=== PATIENT | male | born 1945 | race Caucasian/White ===

== ENCOUNTER 2017-12-13 09:52 | Inpatient (IN) | payer OTHER ==
[~2017-12-13] VITALS: Ht 167.6 cm; Wt 92.1 kg
[~2017-12-13 09:52] MED LIST: ASPIR 8181 M1 PO; BAYER CHEWABLE81 MG PO; COZAAR 50 MG TA50 M2 PO; CRESTOR10 MG PO; FLOMAX0.4 MG PO; IMDUR 60 MG TAB60 M1 PO; LISINOPRIL10 MG PO; LOPRESSOR50 PO; NITROGLYCERIN0.4 MG SUBLING; PLAVIX 75 MG TA75 M1 PO; PRINIVIL20 MG PO; TOPROL XL25 MG PO; ZOLOFT100 MG PO
[2017-12-13 10:00] VITALS: BP 145/75
[2017-12-13] MEDS ORDERED: METFORMIN HCL500 MG PO (10:18)
[2017-12-13] MEDS ORDERED: LIPITOR 20 MG T20 M1 PO (10:18)
[2017-12-13 10:49] LABS: ABSOLUTE EOSINOPHILS 0.1 thou/uL (0.0-0.7); ABSOLUTE LYMPHOCYTES 1.1 thou/uL (0.8-5.3); ABSOLUTE MONOCYTES 0.5 thou/uL (0.0-1.2); ABSOLUTE NEUTROPHILS 4.9 thou/uL (1.6-8.1); BASOPHILS 0.4 %; HEMATOCRIT 46.7 % (42.0-52.0); HEMOGLOBIN 15.8 gm/dL (14.0-18.0); LYMPHOCYTES 16.6 %; MCH 29.7 pg (26.0-34.0); MCHC 33.7 g/dL (28.0-37.0); MCV 87.9 fL (80.0-100.0); MONOCYTES 7.8 %; MPV 8.6 fl. (7.2-11.1); NUCLEATED RBCS 0 /100WBC; PLATELET COUNT* 169 thou/uL (150-400); POLYS 74.2 %; RBC 5.31 mil/uL (4.50-6.00); RDW-CV 14.4 % (10.5-14.5); WBC 6.6 thou/uL (4.0-11.0)
[2017-12-13 10:57] LABS: ANION GAP 8 mmol/L (7-16); BUN 11 mg/dL (7-18); CALCIUM 8.5 mg/dL (8.5-10.1); CHLORIDE 102 mmol/L (98-107); CO2 30 mmol/L (21-32); CREATININE 0.8 mg/dL (0.6-1.3); GLUCOSE 154 mg/dL (70-99); POTASSIUM 3.6 mmol/L (3.5-5.1); SODIUM 140 mmol/L (136-145)
[2017-12-13 11:01] LABS: APTT 28.8 Seconds (25.0-31.3)
[2017-12-13 11:05] LABS: ALBUMIN 3.7 g/dL (3.4-5.0); ALKALINE PHOSPHATASE 120 U/L (46-116); LIPASE 89 U/L (73-393); NT-PRO BRAIN NAT PEPTIDE 135 pg/mL (<300); SGOT 26 U/L (15-37); SGPT 27 U/L (30-65); TOTAL BILIRUBIN 0.7 mg/dL (<0.1-1.0); TOTAL PROTEIN 7.4 g/dL (6.4-8.2); TROPONIN-I LEVEL <0.06 ng/mL (<0.06)
--- NOTE | 2017-12-13 12:51 | NUR ---
PT GIVEN LUNCH TRAY.
[2017-12-13 13:55] VITALS: BP 149/78
[2017-12-13 14:00] VITALS: BP 144/78
--- NOTE | 2017-12-13 14:50 | NUR ---
ASSUMED CARE OF PATIENT AT 1400 AFTER TRANSFER TO ROOM 210 FROM EMERGENCY DEPARTMENT. PATIENT AWAKE, ALERT, AND ORIENTED APPROPRIATELY. ADMISSION ASSESSMENT AND DOCUMENTATION COMPLETED AND CHARTED. VITAL SIGNS STABLE. OXYGEN SATURATION WITHIN NORMAL LIMITS ON ROOM AIR. FALL CONTRACT AND MEDICARE PAPERWORK SIGNED AND ON CHART. PEDIATRIC CLINICAL NURSE SPECIALIST IN PLACE. FAMILY AT BEDSIDE. PATIENT DENIES NEEDS AT THIS TIME. WILL BE UP AD DEB. DISPLAYING NO SYSMPTOMS OF BRADYCARDIA. CALL LIGHT WITHIN REACH. NURSING WILL CONTINUE TO MONITOR.
[2017-12-13 15:27] VITALS: BP 136/70
--- NOTE | 2017-12-13 17:54 | NUR ---
PATIENT REMAINS ALERT AND ORIENTED APPROPRIATELY. DENIES NEEDS AT THIS TIME. CALL LIGHT WITHIN REACH. NURSING WILL CONTINUE TO MONITOR.
[2017-12-13 19:45] VITALS: BP 169/71
[2017-12-14] VITALS (18 sets, daily range): BP systolic 105–156; BP diastolic 48–81
--- NOTE | 2017-12-14 04:47 | NUR ---
END SHIFT: PT RESTED WELL. HR WOULD DROP INTO THE 20'S BREIFLY WHILE SLEEPING. SB WITH MULTIPLE PVC'S AND BIGEMINY NOTED. C/O DULL ACHE IN BILAT SHOULDERS RELIEVED BY IV PAIN MEDICATION. HAS REMAINED NPO SINCE [place] AWAITING CARDS CONS. SAFETY PRECAUTIONS IN PLACE. CALL LIGHT IN REACH. WILL CONT TO MONITOR.
[2017-12-14 11:02] LABS: CHOLESTEROL 118 mg/dL (<200); HDL CHOLESTEROL 53 mg/dL (>40); LDL CHOLESTEROL 38 mg/dL (<100); TC:HDL 2.2 Ratio (Not establshd); TRIGLYCERIDE 138 mg/dL (<150); VLDL 28 mg/dL (<40)
[2017-12-14 11:03] LABS: SERUM ASSESSMENT Clear
--- NOTE | 2017-12-14 14:26 | NUR ---
CM ASSESSMENT: Pt is A&O. Resides at home with his . Pt has supportive family that is invovled in POC. No DME. No hx of HH or SNF. Goal is to return home once medically stable. Cards following.
--- NOTE | 2017-12-14 15:43 | NUR ---
RECEIVED REPORT AND ASSUMED CARE AT 0730. VSS, CARDIAC MONITORING IN PLACE. PT REPORTS PAIN BILATERAL SHOULDERS, 09/09, DOES NOT WANT ANY PAIN MEDICATION. PT A&OX4, UP AD DEB IN ROOM. ON RA. CARDIOLOGY CONSULTED, CATH SCHEDULED FOR TODAY 12/14/17. PLAN OF CARE DISCUSSED WITH PT, VERBALIZED UNDERSTANDING. ASSESSMENT COMPLETED CHARTED. BED IN LOWEST POSITION, CALL LIGHT WITHIN REACH. WILL CONTINUE TO MONITOR FOR REMAINDER OF THE SHIFT.
--- NOTE | 2017-12-14 17:48 | EKG ---
[place] [address] ELECTROCARDIOGRAM REPORT Name: RUBIN WEEKS Room: [address] ADM IN M.R.#: [id number] Admission: 12/13/17 Attend Phys: Zaira Shoemaker MD Discharge: Date of : 45 Report #: [id number] THIS REPORT FOR: //name// [facility] ED Test Date: 2017-12-13 Test Time: 09:59:44 Pat Name: RUBIN WEEKS Department: Room: [facility] Gender: Medical Referral Coordinator: Rishi CRAMER : 1945 Requested By: Lucina Carranza Order Number: [id number] MD: Isaak Castellano Measurements Intervals Isabel Rate: 64 P: 37 WV: 196 QRS: -24 QRSD: 97 T: 36 QT: 437 QTc: 451 Interpretive Statements Sinus rhythm Multiform ventricular premature complexes Inferior infarct, old Compared to ECG 02/22/2016 12:02:15 No significant changes Electronically Signed On 12-14-2017 17:48:18 CDT by Isaak Castellano [email or web address] <ELECTRONICALLY SIGNED> By: Isaak Castellano MD, [facility] 12/14/17 1748 [id number] [id number] Isaak Castellano MD, [facility] /EPI
--- NOTE | 2017-12-14 17:56 | NUR ---
PT RETURNED TO UNIT FROM DISTRIBUTOR ADVERTISING MATERIAL AT 1614. PT A&O X4, PT ON RA. PT ON BEDREST FOR 5HR, WILL BE ABLE TO GET UP AT 2114. VSS AT RETURN TO UNIT. VS TAKEN PER PROTOCOL. PT DENIES ANY COMPLAINTS OF PAIN. BED IN LOWEST POSITION. CALL LIGHT WITHIN REACH. BED ALARM ON. CARDIAC MONITORING IN PLACE. PT PROGRESSING TOWARDS GOALS. WILL CONTINUE TO MONITOR FOR REMAINDER OF THE SHIFT.
--- NOTE | 2017-12-14 19:20 | NUR ---
PLEASE NOTE POST CATH VITALS AND ASSESSMENT STARTED AT 1715.
[2017-12-15 03:43] VITALS: BP 97/46
--- NOTE | 2017-12-15 05:00 | NUR ---
Pt on bedrest following cardiac cath until 2214. Rt groin stable with no hematoma; PPP. VSS, though BP lower since being off bedrest (105/48 at 2300, and 97/46 at 0300). Asymptomatic. States he is hopeful of being discharged today. Will continue to monitor.
[2017-12-15 05:29] LABS: HEMATOCRIT 42.1 % (42.0-52.0); HEMOGLOBIN 14.2 gm/dL (14.0-18.0); MCH 29.5 pg (26.0-34.0); MCHC 33.7 g/dL (28.0-37.0); MCV 87.5 fL (80.0-100.0); RBC 4.81 mil/uL (4.50-6.00); RDW-CV 14.3 % (10.5-14.5); WBC 6.8 thou/uL (4.0-11.0)
[2017-12-15 06:18] LABS: ALBUMIN 3.1 g/dL (3.4-5.0); ALKALINE PHOSPHATASE 102 U/L (46-116); ANION GAP 10 mmol/L (7-16); BUN 11 mg/dL (7-18); CALCIUM 8.4 mg/dL (8.5-10.1); CHLORIDE 106 mmol/L (98-107); CO2 26 mmol/L (21-32); CREATININE 0.7 mg/dL (0.6-1.3); GLUCOSE 119 mg/dL (70-99); POTASSIUM 3.6 mmol/L (3.5-5.1); SGOT 22 U/L (15-37); SGPT 20 U/L (30-65); SODIUM 142 mmol/L (136-145); TOTAL BILIRUBIN 0.8 mg/dL (<0.1-1.0); TOTAL PROTEIN 5.9 g/dL (6.4-8.2); TROPONIN-I LEVEL <0.06 ng/mL (<0.06)
[2017-12-15 07:30] VITALS: BP 134/73
[2017-12-15 09:09] VITALS: BP 97/46
[2017-12-15] MEDS ORDERED: CLOPIDOGREL75 MG PO (09:12)
[2017-12-15 11:00] VITALS: BP 97/46
--- NOTE | 2017-12-15 11:56 | NUR ---
RECEIVED REPORT AND ASSUMED CARE AT 0730. VSS. CARDIAC MONITORING IN PLACE. ASSESSMENT COMPLETED CHARTED. PT DENIES ANY COMPLAINTS OF PAIN. DISCUSSED PLAN OF CARE WITH PT. PT WILL TALK WITH CARDIAC REHAB NURSE. PT VERBALIZED UNDERSTANDING. PT UP AD DEB IN ROOM, ON RA. BED IN LOWEST POSITION AND CALL LIGHT WITHIN REACH. PLANS FOR DISCHARGE TODAY. WILL CONTINUE TO MONITOR.
[2017-12-15 12:26] VITALS: BP 97/46
--- NOTE | 2017-12-15 13:30 | NUR ---
DISCHARGE ORDERS GIVEN. PAPERWORK COMPLETED BY NURSING. IV AND CARDIAC MONITORING DISCONTINUED. PT DENIES ANY CONMPLAINS OF PAIN. PT RECEIVED INFORMATION FROM CARDIAC REHAD RN. DISCUSSED PAPERWORK WITH PT, VERBALIZED UNDERSTANDING. ALL QUESTINOS AND CONCERNS ADDRESSED AT THIS TIME. ALL BELONGINGS GATHERED AND GIVEN TO THE PT. PT WAS TAKEN BY STAFF IN W/C, BEING TRANSPORTED HOME BY DAUGHTER WITH SPOUSE IN PERSONAL VEHICLE
--- NOTE | 2017-12-15 14:04 | EKG ---
[place] [address] ELECTROCARDIOGRAM REPORT Name: RUBIN WEEKS Room: [address] IN .R.#: [id number] Admission: 12/13/17 Attend Phys: Zaira Shoemaker MD Discharge: 12/15/17 Date of : 45 Report #: [id number] THIS REPORT FOR: //name// [facility] Test Date: 2017-12-15 Test Time: 08:24:58 Pat Name: RUBIN WEEKS Department: Room: [address] Gender: M Rn Quality: : 1945 Requested By: Clem Winters Order Number: [id number] MD: Isaak Castellano Measurements Intervals [place] Rate: 64 P: 44 CT: 201 QRS: -22 QRSD: 92 T: 71 QT: 630 QTc: 650 Interpretive Statements Sinus rhythm Ventricular premature complex Inferior infarct, old Prolonged QT interval Baseline wander in lead(s) V5 Compared to ECG 12/13/2017 09:59:44 Prolonged QT interval now present Myocardial infarct finding still present for her Electronically Signed On 12-15-2017 14:04:37 CDT by Isaak Castellano [email or web address] <ELECTRONICALLY SIGNED> By: Isaak Castellano MD, FACC 12/15/17 1404 0824 Isaak Castellano MD, [facility] /EPI
--- NOTE | 2017-12-16 16:33 | CON ---
[address] [address] CONSULTATION Name: RUBIN WEEKS Room: [address] IN .R.#: [id number] Admission: 12/13/17 Attend Phys: Zaira Shoemaker MD Discharge: 12/15/17 Date of : 45 Report #: [id number] THIS REPORT FOR: //name// CC: Estee Castellano DATE OF SERVICE: 12/14/2017 Thank you for allowing me to see this patient in cardiovascular assessment. As you know, he is a very pleasant 72-year-old male with known coronary artery disease. He is followed by Dr. Castellano for this problem. He had initial myocardial infarction in 2001 and has had a placement of 5 stents over several years, most recently 4 years ago in [place]. In the last 7-10 days, he has noted recrudescence of pain in his back and shoulders with radiation down the back, which is similar to his prior ischemic syndrome, though not as severe as the pain associated with his myocardial infarction. It occurs essentially daily and he has not sought any specific medications for relief. He has not had this prior to approximately 10 days ago. Risk factors for coronary artery disease include hypercholesterolemia, diabetes, hypertension and a family history of coronary artery disease in his father. He denies symptoms of heart failure or significant dysrhythmia. PAST MEDICAL HISTORY: Remarkable for cholecystectomy, prior myocardial infarction and prior stenting. FAMILY HISTORY: Remarkable for myocardial infarction in his father. SOCIAL HISTORY: The patient is and retired. MEDICATIONS: Aspirin 81 mg daily, atorvastatin 20 mg daily, Imdur 60 mg daily, losartan 50 mg daily, metformin 100 mg daily, metoprolol 50 mg b.i.d., p.r.n. nitroglycerin, Zoloft 100 mg daily and tamsulosin or Flomax 0.4 mg daily. REVIEW OF SYSTEMS: CENTRAL NERVOUS SYSTEM: He denies convulsion or paralysis. GENERAL: There has been no weight change or fever. RESPIRATORY: He notes occasional cough. CARDIOVASCULAR: He describes the aforementioned back and shoulder discomfort, typical of his prior angina. ENDOCRINE: He notes type 2 sty-qepqigc-unmmucqpa diabetes. GASTROINTESTINAL: He denies nausea, vomiting or blood in the stools. GENITOURINARY: [place] [address] CONSULTATION Name: RUBIN WEEKS Room: [address]#: [id number] Admission: 12/13/17 Attend Phys: Zaira Shoemaker MD Discharge: 12/15/17 Date of : 45 Report #: [id number] HEMATOLOGIC AND LYMPHATIC: He has a history of prostate cancer in 2013. ALLERGIC AND IMMUNOLOGIC: He notes medication allergies to NSAIDs. PSYCHIATRIC: He denies depression or chronic anxiety. MUSCULOSKELETAL: He notes chronic arthritic complaints. SKIN: He denies rashes or hives. EYES: Wears glasses. ENT: He has dentures. PHYSICAL EXAMINATION: GENERAL: Reveals a moderately overweight elderly male, in no acute distress. VITAL SIGNS: His blood pressure is 122/70, pulse rate is 55, respirations are 18 per minute. HEENT: Oral mucosa is moist. There is no thyromegaly, no scleral icterus. NECK: Jugular venous pressure is normal. Carotids are 1-2+. CHEST: Clear. CARDIAC: Reveals normal first and second heart sounds with a question of S4 gallop. ABDOMEN: Moderately obese. EXTREMITIES: Without edema with intact femoral, pedal and radial pulses. LABORATORY DATA: Electrocardiogram demonstrates a sinus rhythm with moderately frequent PVCs, minor interventricular conduction delay and nonspecific ST-T alterations. Lab is remarkable for white blood cell count 6600, hemoglobin 15.8, 169,000 platelets6. Sodium 140, potassium 3.6, BUN 11, creatinine 0.8. Troponin is less than 0.06. IMPRESSION: 1. Recurrent pain in the shoulder and down the back, typical of his prior ischemic syndrome, but not as severe as that associated with acute myocardial infarction; this most likely represents angina following an unstable course. 2. Coronary artery disease, status post prior myocardial infarction. 3. Status post deployment of multiple stents on different occasions, most recently in 2013 in [place]. 4. Prior cigarette smoking. 5. Hypercholesterolemia. 6. Non-insulin dependent diabetes. 7. Hypertension. 8. Positive family history of premature coronary artery disease. RECOMMENDATIONS: Given the aforementioned clinical scenario with recrudescence of pain similar to his prior ischemic syndrome, I would recommend proceeding with cardiac catheterization to define current coronary anatomy and prospects for subsequent therapy. This has been discussed with the patient and family. [address] [address] CONSULTATION Name: RUBIN WEEKS Room: [address] IN [facility].#: [id number] Admission: 12/13/17 Attend Phys: Zaira Shoemaker MD Discharge: 12/15/17 Date of : 45 Report #: [id number] Thank you for allowing me to see this patient in cardiovascular assessment. The patient is to return to Dr. Shoemaker. <ELECTRONICALLY SIGNED> By: Clem Winters MD, FACC 12/16/17 1633 1000 [id number] Winters MD, FACC /nt
--- NOTE | 2017-12-19 14:02 | CARD ---
[address] [address] CARDIAC CATH REPORT Name: RUBIN WEEKS Room: [address] IN [facility]#: [id number] Admission: 12/13/17 Attend Phys: Zaira Shoemaker MD Discharge: 12/15/17 Date of : 45 Report #: [id number] THIS REPORT FOR: //name// APPROVED REPORT Study performed: 12/14/2017 14:45:15 Patient Details Patient Status: In-Patient Room #: The patient is a 72 year-old male Event Personnel Clem Winters Motor Electrician, Mary Jane Whitman RN RN, Britany Beth Childers, James Monitor Procedures Performed Left heart catheterization left ventriculography selective coronary artery artery and percutaneous Coronary Angioplasty at the Sites of Tandem 90% First Diagonal Stenoses; FFR was also performed on the LAD Indication Unstable angina Risk Factors Hypercholesterolemia, Hypertension Previous Procedures/Diagnoses Previous PCI Admission/Lab Medications/Medications given during procedure Aspirin, Platelet Aff. Inhib., Heparin Unfract. Procedure Narrative A [place] 6 FR sheath was inserted into the . Coronary angiography was performed using coronary diagnostic catheters. The right coronary system was accessed and visualized with a Diagnostic - JR4 catheter. The left coronary system was accessed and visualized with a Diagnostic - JL4 catheter. The left ventricle was accessed and visualized with a Diagnostic - PIGTAIL catheter. The patient tolerated the procedure well and there were no complications associated with the procedure. Intraoperative Conscious Sedation Sedation start time: 1508 Case end Time: [address] [address] CARDIAC CATH REPORT Name: DESIRUBIN S Room: [address]#: [id number] Admission: 12/13/17 Attend Phys: Zaira Shoemaker MD Discharge: 12/15/17 Date of : 45 Report #: [id number] Fentanyl 100 mcg Versed 2 mg Fluoro Time: 21.3 minutes Dose: DAP 376144 cGycm2 3120 mGy Contrast Type and Amount: Visipaque 450 ml Coronary Angiography The patient's coronary anatomy is right dominant. Diagnostic Cath Left Main 10% distal narrowing LAD 40% mid LAD narrowing with tandem 90% ostial and mid second diagonal stenosis Circumflex 30% proximal and mid vessel narrowing, this being a nondominant vessel Right Coronary Dominant vessel with 30% proximal narrowing Left Ventriculography The left ventricle is normal in size with normal contractility. The left ventricular ejection fraction is estimated to be 55-60%. Left ventricular wall motion abnormalities are not present. There is no mitral insufficiency. IVUS Anticoagulation was achieved with Heparin. IVUS Findings FFR STARTED AT .97 AND ENDED AT .87 after adenosine provocation Hemodynamics The aortic pressure is 160/75 mmHg with a mean of 99 mmHg. The left ventricular pressure is 151/-2 mmHg with a mean of mmHg. The left ventricular end diastolic pressure is 6 mmHg. There was no gradient across the aortic valve upon pullback. PCI Technique Lesion Anticoagulation was achieved with Heparin. Patient was preloaded with Heparin IV 7000 units. Percutaneous coronary intervention was performed on the second diagnonal branch segment. The lesion stenosis prior to intervention was 90% with MINOR flow. A 6Fr XB 3.5 Guide Catheter was used to engage the ostium. A IG: ProwaterFlex 180CM Interventional Guidewire was used to cross the lesion[place] [address] CARDIAC CATH REPORT Name: RUBIN WEEKS Room: [address]#: [id number] Admission: 12/13/17 Attend Phys: Zaira Shoemaker MD Discharge: 12/15/17 Date of : 45 Report #: [id number] A Balloon catheter Mini Trek RX 2.0 X 8 was inserted and inflated up to 10.00atm for 16seconds. Additional Inflation: 8.00atm for 15seconds. Additional Inflation: 10.00atm for 14seconds. Final angiography reveals 0 % stenosis with MINOR 3 flow. BALLOON DILATION A Balloon catheter FFR STARTED AT .97 AND ENDED AT .87 after adenosine provocation was inserted and inflated up to mercy for seconds. PCI Technique Lesion 2 Percutaneous coronary intervention was performed on the ostial second diagonal branch. The lesion stenosis prior to intervention was 80% with MINOR 3 flow. Balloon Dilation A Balloon catheter NC Trek RX 2.25 X 8 was inserted and inflated up to 12atm for 14seconds. Additional Inflation: 8atm for 13seconds. Final angiography reveals 20 % stenosis with MINOR 3 flow. Balloon Dilation A Balloon catheter NC Trek RX 2.25 X 8 was inserted and inflated up to 8atm for 10seconds. Additional Inflation: 10atm for 9seconds. Additional Inflation: 12atm for 9seconds. Conclusion #1 significant coronary artery disease characterized by the following: A 10 percent distal left main coronary artery narrowing, B 40% mid LAD in-stent restenosis with tandem 80 and 90% stenosis of the second diagonal branch of the LAD, C nondominant circumflex with 30% proximal and mid vessel narrowing, D dominant right coronary artery 30% proximal narrowing #2 normal left ventricular systolic function, estimated ejection fraction being 55% #3 mild [place] [address] CARDIAC CATH REPORT Name: RUBIN WEEKS Room: [address]#: [id number] Admission: 12/13/17 Attend Phys: Zaira Shoemaker MD Discharge: 12/15/17 Date of : 45 Report #: [id number] #4 fractional flow reserve performed on the mid LAD with a minimum value of .87 after pharmacologic provocation, suggesting lack of hemodynamic significance #5 successful percutaneous transluminal coronary angioplasty at the sites of 80 and 90% ostial and mid second diagonal stenosis with 20 and 0% residual narrowing following final dilatation with MINOR-3 flow to the distal vessel. Recommendations Daily ASA with Plavix for at least one year Medications Administered Aspirin (any) Clopidogrel <ELECTRONICALLY SIGNED> By: Clem Winters MD, [facility] 12/19/17 1401 140 1401Clem Winters MD, FAC /INF
== END 2017-12-15 13:54 | disposition home or self-care (01) | DRG 251 ==
LOC: M.ERS 09:52 → M.TBA-ER 11:41 → M.2W 11:41
PROVIDERS: Internal Medicine; Personal Emergency Response Attendant; ADMIT Internal Medicine
DX: I25.110 Atherosclerotic heart disease of native coronary artery with unstable angina pectoris (principal); I10 Essential (primary) hypertension; E78.00 Pure hypercholesterolemia, unspecified; N40.0 Benign prostatic hyperplasia without lower urinary tract symptoms; E11.9 Type 2 diabetes mellitus without complications; I25.2 Old myocardial infarction; Z95.5 Presence of coronary angioplasty implant and graft; Z85.46 Personal history of malignant neoplasm of prostate; Z92.3 Personal history of irradiation; Z79.84 Long term (current) use of oral hypoglycemic drugs; Z79.82 Long term (current) use of aspirin; Z79.899 Other long term (current) drug therapy; Z88.8 Allergy status to other drugs, medicaments and biological substances; Z82.49 Family history of ischemic heart disease and other diseases of the circulatory system

== ENCOUNTER → 2018-09-15 | Outpatient (CLI) | payer MEDICARE, OTHER ==
[~2018-09-15] MED LIST changes: +CLOPIDOGREL75 MG PO; +LIPITOR 20 MG T20 M1 PO; +METFORMIN HCL500 MG PO
--- NOTE | 2018-09-15 17:38 | 2DMMODE ---
[place] [address] 2 D/M-MODE ECHOCARDIOGRAM Name: RUBIN WEEKS Room: [facility]#: [id number] Admission: 09/15/18 Attend Phys: Judie Alvarez Discharge: Date of : 45 Date of Service: 09/15/18 1738 Report #: [id number] THIS REPORT FOR: //name// APPROVED REPORT Study performed: 09/15/2018 08:18:27 EXAM: Comprehensive 2D, Doppler, and color-flow Echocardiogram BSA: 2.04 HR: 72 bpm BP: 128/78 mmHg Other Information Study Quality: Fair Indications CAD Hypertension/HDD 2D Dimensions IVSd: 13.62 (7-11mm) LVOT Diam: 20.97 (18-24mm) LVDd: 50.40 mm PWd: 11.43 (7-11mm) Ascending Ao: 31.28 (22-36mm) LVDs: 29.02 (25-40mm) Aortic Root: 26.92 mm Volumes Left Atrial Volume (Systole) LA ESV Index: 11.90 mL/m2 Aortic Valve AoV Peak Kedar.: 1.19 m/s AO Peak Gr.: 5.62 mmHg LVOT Max P.11 mmHg AO Mean Gr.: 3.14 mmHg LVOT Mean P.42 mmHg LVOT Max V: 0.88 m/s AO V2 VTI: 21.24 cm LVOT Mean V: 0.54 m/s AKMLA (VTI): 2.56 cm2 LVOT V1 VTI: 15.72 cm Mitral Valve E/A Ratio: 0.53 MV Decel. Time: 478.62 ms MV E Max Kedar.: 0.35 m/s MV PHT: 138.80 ms MVA (PHT): 1.59 cm2 [place] [address] 2 D/M-MODE ECHOCARDIOGRAM Name: RUBIN WEEKS Room: [facility]#: [id number] Admission: 09/15/18 Attend Phys: Judie Alvarez Discharge: Date of : 45 Date of Service: 09/15/18 1738 Report #: [id number] TDI E/Lateral E': 2.92 E/Medial E': 5.83 Medial E' Kedar.: 0.06 m/s Lateral E' Kedar.: 0.12 m/s Pulmonary Valve PV Peak Kedar.: 1.26 m/s PV Peak Gr.: 6.34 mmHg Left Ventricle The left ventricle is normal size. There is normal LV segmental wall motion. Mild concentric left ventricular hypertrophy. Left ventricular systolic function is normal. LVEF is 55-60%. Grade I - abnormal relaxation pattern. Right Ventricle The right ventricle is normal size. The right ventricular systolic function is normal. Atria The left atrium size is normal. The right atrium size is normal. Aortic Valve The aortic valve is normal in structure. No aortic regurgitation is present. There is no aortic valvular stenosis. Mitral Valve There is mitral annular calcification. There is no mitral valve regurgitation noted. Mild mitral stenosis. Tricuspid Valve The tricuspid valve is normal in structure. There is no tricuspid valve regurgitation noted. Pulmonic Valve The pulmonary valve is normal in structure. There is no pulmonic valvular regurgitation. Great Vessels The aortic root is normal in size. IVC is normal in size and collapses >50% with inspiration. Pericardium There is no [place] [address] 2 D/M-MODE ECHOCARDIOGRAM Name: RUBIN WEEKS Room: [facility]#: [id number] Admission: 09/15/18 Attend Phys: Judie Alvarez Discharge: Date of : 45 Date of Service: 09/15/18 1738 Report #: [id number] <Conclusion> The left ventricle is normal size. Mild concentric left ventricular hypertrophy. Left ventricular systolic function is normal. LVEF is 55-60%. Grade I - abnormal relaxation pattern. There is mitral annular calcification. Mild mitral stenosis. IVC is normal in size and collapses >50% with inspiration. <ELECTRONICALLY SIGNED> By: Isaak Castellano MD, FACC 09/15/18 1738 1738 1738 Isaak Castellano MD, FAC /INF
== END ==
LOC: M.CRD 08:00
DX: I51.7 Cardiomegaly (principal); I25.10 Atherosclerotic heart disease of native coronary artery without angina pectoris; I10 Essential (primary) hypertension

== ENCOUNTER → 2018-10-26 | Outpatient (CLI) | payer MEDICARE, OTHER | LOC: M.RAD 12:35 | DX: I51.7 Cardiomegaly (principal); J92.9 Pleural plaque without asbestos; R91.8 Other nonspecific abnormal finding of lung field; M47.814 Spondylosis without myelopathy or radiculopathy, thoracic region ==

== ENCOUNTER → 2021-02-06 | Outpatient (CLI) | payer MEDICARE, OTHER ==
--- NOTE | 2021-02-06 12:09 | 2DMMODE ---
[place] [address] 2 D/M-MODE ECHOCARDIOGRAM Name: RUBIN WEEKS Room: [facility]#: [id number] Admission: 02/06/21 Attend Phys: Isaak Castellano, Discharge: Date of : 45 Date of Service: 02/06/21 1209 Report #: [id number] THIS REPORT FOR: cc: Estee Voss MD, Katrina MD Holkins,Clem El MD [facility] ~ APPROVED REPORT Study performed: 02/06/2021 08:30:57 EXAM: Comprehensive 2D, Doppler, and color-flow Echocardiogram Patient Location: Out-Patient BSA: 2.02 HR: 58 bpm BP: 152/62 mmHg Other Information Study Quality: Fair Indications CAD Chest Pain 2D Dimensions IVSd: 10.98 (7-11mm) LVOT Diam: 20.28 (18-24mm) LVDd: 50.04 mm PWd: 11.53 (7-11mm) Ascending Ao: 34.31 (22-36mm) LVDs: 30.05 (25-40mm) Aortic Root: 34.19 mm Volumes Left Atrial Volume (Systole) LA ESV Index: 21.20 mL/m2 Aortic Valve AoV Peak Kedar.: 1.22 m/s AO Peak Gr.: 5.97 mmHg LVOT Max P.02 mmHg AO Mean Gr.: 3.06 mmHg LVOT Mean P.05 mmHg LVOT Max V: 0.71 m/s AO V2 VTI: 25.59 cm LVOT Mean V: 0.48 m/s KAMLA (VTI): 2.09 cm2 LVOT V1 VTI: 16.59 [place] [address] 2 D/M-MODE ECHOCARDIOGRAM Name: RUBIN WEEKS Room: [facility]#: [id number] Admission: 02/06/21 Attend Phys: Isaak Castellano, Discharge: Date of : 45 Date of Service: 02/06/21 1209 Report #: [id number] E/A Ratio: 0.54 MV Decel. Time: 240.35 ms MV E Max Kedar.: 0.34 m/s MV PHT: 69.70 ms MVA (PHT): 3.16 cm2 TDI E/Lateral E': 4.86 E/Medial E': 5.67 Medial E' Kedar.: 0.06 m/s Lateral E' Kedar.: 0.07 m/s Pulmonary Valve PV Peak Kedar.: 0.88 m/s PV Peak Gr.: 3.13 mmHg Left Ventricle The left ventricle is normal size. There is normal LV segmental wall motion. There is normal left ventricular wall thickness. Left ventricular systolic function is normal. The left ventricular ejection fraction is within the normal range. LVEF is 60-65%. Grade I - abnormal relaxation pattern. Right Ventricle The right ventricle is normal size. The right ventricular systolic function is normal. Atria The left atrium size is normal. The right atrium size is normal. Aortic Valve Mild aortic valve sclerosis. Mild aortic regurgitation. There is no aortic valvular stenosis. Mitral Valve The mitral valve is normal in structure. There is no mitral valve regurgitation noted. No evidence of mitral valve stenosis. Tricuspid Valve The tricuspid valve is normal in structure. There is no tricuspid valve regurgitation noted. Pulmonic Valve The pulmonary valve is normal in structure. There is no pulmonic valvular regurgitation[place] [address] 2 D/M-MODE ECHOCARDIOGRAM Name: RUBIN WEEKS [id number] Admission: 02/06/21 Attend Phys: Isaak Castellano, Discharge: Date of : 45 Date of Service: 02/06/21 1209 Report #: [id number] The aortic root is normal in size. IVC is normal in size and collapses >50% with inspiration. Pericardium There is no pericardial effusion. <Conclusion> The left ventricle is normal size. There is normal left ventricular wall thickness. Left ventricular systolic function is normal. The left ventricular ejection fraction is within the normal range. LVEF is 60-65%. Grade I - abnormal relaxation pattern. The right ventricle is normal size. The left atrium size is normal. Mild aortic valve sclerosis. Mild aortic regurgitation. There is no aortic valvular stenosis. The mitral valve is normal in structure. The tricuspid valve is normal in structure. IVC is normal in size and collapses >50% with inspiration. There is no pericardial effusion. There is normal LV segmental wall motion. <ELECTRONICALLY SIGNED> By: Clem Winters MD, [facility] 02/06/21 1209 08 1209 Clem Winters MD, FACC /INF
--- NOTE | 2021-02-07 08:21 | CARDNUC ---
[place] [address] CARDIAC NUCLEAR IMAGING REPORT Name: RUBIN WEEKS Room: [facility]#: [id number] Admission: 02/06/21 Attend Phys: Isaak Castellano, Discharge: Date of : 45 Date of Service: 02/07/21820 Report #: [id number] THIS REPORT FOR: cc: Estee Voss MD, Katrina MD Liston, Michael J. MD [facility] ~ APPROVED REPORT Imaging Protocol: Rest Tc-99m/Stress Tc-99m 1 day Study performed: 02/06/2021 11:18:39 Indication: CAD , CAD s/p PCI Patient Location: Out-Patient Stress Tech: Jessica De Paz Stress Nurse: Siena Gutierres RN NM Tech:FARNAZ Ceja Ht: 5 ft 6 in Wt: 206 lbs BSA: 2.02 m2 BMI: 33.24 Medical History Medical History: Diabetes, HTN, Hyperlipidemia, CAD s/p stent Medications: asa-81, atorvastatin, clopipgrel, imdur, losartan, metoprolol Allergies: nsaids Cardiac Risk Factors: Age, DM, FHX of CAD, HTN, Hyperlipidemia, Past Smoker Previous Cardiac Procedures: PCI Exercise History: Indeterminate Meds Held (24 hrs): , imdur, metoprolol Resting Data Rest SPECT myocardial perfusion imaging was performed in supine position 30 minutes following the intravenous injection of 10.6 mCi of Tc-99m Sestamibi. Time of rest injection: 1015 Date: 02/06/2021 The images were gated to evaluate regional wall motion and calculate left ventricular ejection fraction. Administration Route: IV Pharmacologic Stress Pharmacologic stress test was performed by injecting Regadenoson 0.4 mg IV push over 10-15 seconds immediately followed [place] [address] CARDIAC NUCLEAR IMAGING REPORT Name: RUBIN WEEKS [id number] Admission: 02/06/21 Attend Phys: Isaak Castellano, Discharge: Date of : 45 Date of Service: 02/07/21820 Report #: [id number] injection of 33.9 mCi of Tc-99m Sestamibi. Time of stress injection: 1145 Date: 02/06/2021 Administration Route: IV Gated Stress SPECT was performed 40 minutes after stress injection. The images were gated to evaluate regional wall motion and calculate left ventricular ejection fraction. Prone imaging was performed. Stress Test Details Stress Test: Pharmacologic stress testing performed using 0.4 mg of regadenoson per 5 mL given IV over 10 seconds. Reason for pharmacologic stress test: changed from exercise stress test due to inability to reach target heart rate. HR Max Heart Rate (APMHR): 145 bpm Resting HR: 59 bpm Target HR (85% APMHR): 123 bpm Max HR Achieved: 79 bpm % of APMHR: 54 Recovery HR: 75 bpm BP Resting BP: 145/94 mmHg Max BP: 174/69 mmHg Recovery BP: 164/80 mmHg ECG Resting ECG: Sinus Rhythm Stress ECG: Sinus Rhythm ST Change: None Arrhythmia: None Recovery ECG: Sinus Rhythm Recovery ST Change: None Recovery Arrhythmia: None Clinical Reason for Termination: Completed protocol Patient tolerated Lexiscan infusion without significant cardiac symptoms. Nurse Comments pt has past history of not being able to reach target rate and always has to do radha Stress ECG Conclusion The baseline twelve-lead EKG shows sinus rhythm with nonspecific T wave flattening without significant ST segment abnormality[place] [address] CARDIAC NUCLEAR IMAGING REPORT Name: RUBIN WEEKS Room: [facility]#: [id number] Admission: 02/06/21 Attend Phys: Isaak Castellano, Discharge: Date of : 45 Date of Service: 02/07/21 0821 Report #: [id number] obtained during and post Lexiscan infusion show sinus rhythm with no significant ST segment changes when compared to baseline. There were no stress-induced arrhythmias. Study Quality Study: Good Artifact: Mild Diaphragmatic artifact Study Data At rest, the left ventricular ejection fraction was 60%.. Post stress, the left ventricular ejection was 59%.. TID = 1.04. Perfusion Perfusion images obtained in the supine position at rest and post Lexiscan stress show mild photopenia in the inferior wall that resolves with post-rest prone imaging consistent with diaphragmatic attenuation artifact. No other significant defects are identified. Wall Motion Normal left ventricular wall motion. Nuclear Conclusion ECG Findings: negative for ischemia Clinical Findings: negative for ischemia Nuclear Findings: negative for ischemia Exercise Capacity: not assessed Left Ventricular Function: normal Risk Study: low Perfusion images show no defect to suggest infarct or ischemia. Left ventricular systolic function appears normal on gated studies. This is a low risk study. <Conclusion> The baseline twelve-lead EKG shows sinus rhythm with nonspecific T wave flattening without significant ST segment abnormality. EKGs obtained during and post Lexiscan infusion show sinus rhythm with no significant ST segment changes when compared to baseline. There were no stress-induced arrhythmias. <ELECTRONICALLY SIGNED> By: Isaak Castellano MD, FACC 02/07/21820 0 0 Isaak Castellano MD, FACC /INF
== END ==
LOC: M.CRD 01-09 12:00 → M.NUC 02-04 10:00 → M.CRD 02-04 11:00 → M.NUC 02-04 12:00 → M.CRD 08:31 → M.NUC 10:00
PROVIDERS: ATTEND Internal Medicine Cardiovascular Disease
DX: I35.1 Nonrheumatic aortic (valve) insufficiency (principal); I25.10 Atherosclerotic heart disease of native coronary artery without angina pectoris; I10 Essential (primary) hypertension; E78.00 Pure hypercholesterolemia, unspecified; E11.9 Type 2 diabetes mellitus without complications

== ENCOUNTER 2021-05-03 19:25 | Emergency (ER) | payer OTHER, MEDICARE ==
[~2021-05-03] VITALS: Ht 167.6 cm; Wt 93.9 kg
[2021-05-03 19:45] LABS: URINE BILIRUBIN NEGATIVE (Negative); URINE BLOOD 3+ (Negative); URINE COLOR YELLOW; URINE GLUCOSE-RANDOM 1+ (Negative); URINE KETONES NEGATIVE (Negative); URINE LEUKOCYTES-REFLEX NEGATIVE (Negative); URINE NITRITE-REFLEX NEGATIVE (Negative); URINE PROTEIN 2+ (Negative); URINE SPECIFIC GRAVITY 1.015 (1.005-1.030); URINE UROBILINOGEN 0.2 E.U./dl (0.2-1.0)
[2021-05-03] MEDS ORDERED: COZAAR 25 MG TA25 M1 PO (19:46)
[2021-05-03 19:47] LABS: URINE CLARITY HAZY
[2021-05-03] MEDS ORDERED: COLESTIPOL PO (19:47)
[2021-05-03] MEDS ORDERED: MIRTAZAPINE (19:48)
[2021-05-03] MEDS ORDERED: VENTOLIN HFA 1818 GM (19:48)
[2021-05-03 19:55] LABS: BACTERIA-REFLEX None Seen /HPF (None Seen); CASTS None Seen /LPF (None Seen); CRYSTALS None Seen /LPF (None Seen); SQUAMOUS 0-3 Few /LPF (0-3); URINE RBC >20 Many /HPF (0-2); URINE WBC-REFLEX None Seen /HPF (0-5)
[2021-05-03 20:17] LABS: ABSOLUTE EOSINOPHILS 0.2 thou/uL (0.0-0.7); ABSOLUTE LYMPHOCYTES 0.9 thou/uL (0.8-5.3); ABSOLUTE MONOCYTES 0.7 thou/uL (0.0-1.2); ABSOLUTE NEUTROPHILS 5.2 thou/uL (1.6-8.1); BASOPHILS 0.4 %; EOSINOPHILS 2.3 %; HEMATOCRIT 43.3 % (42.0-52.0); HEMOGLOBIN 14.1 gm/dL (14.0-18.0); LYMPHOCYTES 12.3 %; MCH 28.9 pg (26.0-34.0); MCHC 32.5 g/dL (28.0-37.0); MCV 88.9 fL (80.0-100.0); MONOCYTES 10.7 %; MPV 8.1 fl. (7.2-11.1); NUCLEATED RBCS 0 /100WBC; PLATELET COUNT* 154 thou/uL (150-400); POLYS 74.3 %; RBC 4.87 mil/uL (4.50-6.00)
[2021-05-03 20:23] LABS: CALCIUM 8.4 mg/dL (8.5-10.1); CREATININE 0.8 mg/dL (0.6-1.3); POTASSIUM 4.2 mmol/L (3.5-5.1)
[2021-05-03 20:27] LABS: ALBUMIN 3.5 g/dL (3.4-5.0); TOTAL BILIRUBIN 0.3 mg/dL (<0.1-1.0); TOTAL PROTEIN 7.3 g/dL (6.4-8.2)
[2021-05-03] MEDS ORDERED: ZOFRAN ODT4 MG PO (22:49)
[2021-05-03] MEDS ORDERED: HYDROCODON-ACE1 EAC7 PO (22:49)
[2021-05-03 23:15] VITALS: BP 155/71
--- NOTE | 2021-05-04 14:24 | EKG ---
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1945 Requested By: Lucina Carranza Order Number: [id number] MD: Isaak Castellano Measurements Intervals [place] Rate: 66 P: 10 MA: 198 QRS: -50 QRSD: 98 T: 51 QT: 451 QTc: 473 Interpretive Statements Sinus rhythm Ventricular premature complex Inferior infarct, old Consider anterior infarct Compared to ECG 12/15/2017 08:24:58 Prolonged QT interval no longer present Myocardial infarct finding still present Electronically Signed On 05-04-2021 14:24:18 CDT by Isaak Castellano [email or web address] <ELECTRONICALLY SIGNED> By: Isaak Castellano MD, FACC 05/04/21 1424 07 07 Isaak Castellano MD, [facility] /EPI
== END 2021-05-03 23:15 | disposition home or self-care (01) ==
LOC: M.ERS 19:25
PROVIDERS: Physician Assistant
DX: N13.2 Hydronephrosis with renal and ureteral calculous obstruction (principal); N28.1 Cyst of kidney, acquired; I71.4 Abdominal aortic aneurysm, without rupture; I25.2 Old myocardial infarction; E11.9 Type 2 diabetes mellitus without complications; I10 Essential (primary) hypertension; Z85.46 Personal history of malignant neoplasm of prostate; Z90.49 Acquired absence of other specified parts of digestive tract; Z79.899 Other long term (current) drug therapy; Z95.5 Presence of coronary angioplasty implant and graft; Z79.82 Long term (current) use of aspirin; Z88.8 Allergy status to other drugs, medicaments and biological substances

== ENCOUNTER 2021-05-05 14:17 | Emergency (ER) | payer OTHER ==
[~2021-05-05] VITALS: Ht 167.6 cm; Wt 90.7 kg
[~2021-05-05 14:17] MED LIST changes: +COLESTIPOL PO; +COZAAR 25 MG TA25 M1 PO; +HYDROCODON-ACE1 EAC7 PO; +MIRTAZAPINE; +VENTOLIN HFA 1818 GM; +ZOFRAN ODT4 MG PO
[2021-05-05 15:16] LABS: URINE BILIRUBIN NEGATIVE (Negative); URINE BLOOD 1+ (Negative); URINE CLARITY CLEAR; URINE COLOR YELLOW; URINE GLUCOSE-RANDOM NEGATIVE (Negative); URINE KETONES NEGATIVE (Negative); URINE LEUKOCYTES-REFLEX NEGATIVE (Negative); URINE NITRITE-REFLEX NEGATIVE (Negative); URINE PROTEIN TRACE (Negative); URINE UROBILINOGEN 0.2 E.U./dl (0.2-1.0)
[2021-05-05 15:26] LABS: HYALINE CASTS 0-3 Few /LPF (None Seen); MUCUS 0-3 Light strn/LPF (None Seen); SQUAMOUS 0-3 Few /LPF (0-3)
[2021-05-05 15:27] LABS: BACTERIA-REFLEX None Seen /HPF (None Seen); CRYSTALS None Seen /LPF (None Seen); URINE RBC 0-2 Rare /HPF (0-2); URINE WBC-REFLEX None Seen /HPF (0-5)
[2021-05-05 17:11] LABS: ABSOLUTE BASOPHILS 0.1 thou/uL (0.0-0.2); ABSOLUTE EOSINOPHILS 0.1 thou/uL (0.0-0.7); ABSOLUTE LYMPHOCYTES 0.7 thou/uL (0.8-5.3); ABSOLUTE MONOCYTES 0.7 thou/uL (0.0-1.2); ABSOLUTE NEUTROPHILS 7.7 thou/uL (1.6-8.1); BASOPHILS 0.7 %; EOSINOPHILS 0.6 %; HEMATOCRIT 37.7 % (42.0-52.0); LYMPHOCYTES 7.5 %; MCH 29.9 pg (26.0-34.0); MCHC 34.4 g/dL (28.0-37.0); MONOCYTES 7.9 %; MPV 10.1 fl. (7.2-11.1); NUCLEATED RBCS 0 /100WBC; POLYS 83.3 %; RBC 4.33 mil/uL (4.50-6.00); WBC 9.3 thou/uL (4.0-11.0)
[2021-05-05 17:43] LABS: CREATININE 1.4 mg/dL (0.6-1.3); POTASSIUM 4.3 mmol/L (3.5-5.1)
[2021-05-05 17:48] LABS: TOTAL BILIRUBIN 0.5 mg/dL (<0.1-1.0); TOTAL PROTEIN 6.5 g/dL (6.4-8.2)
[2021-05-05 18:01] LABS: PLATELET ESTIMATE ADEQUATE
[2021-05-05 18:02] LABS: CLUMPED PLTS RARE
[2021-05-05 18:06] LABS: LARGE PLATELETS OCCASIONAL; PLATELET COUNT* 219 thou/uL (150-400)
[2021-05-05] MEDS ORDERED: PERCOCET PO (18:33)
[2021-05-05] MEDS ORDERED: FLOMAX0.4 MG PO (18:35)
[2021-05-05 18:43] VITALS: BP 150/73
== END 2021-05-05 18:43 | disposition home or self-care (01) ==
LOC: M.ERS 14:17
PROVIDERS: Nurse Practitioner Family
DX: N23 Unspecified renal colic (principal); I25.2 Old myocardial infarction; E11.9 Type 2 diabetes mellitus without complications; Z85.46 Personal history of malignant neoplasm of prostate; I10 Essential (primary) hypertension; Z79.899 Other long term (current) drug therapy; Z79.82 Long term (current) use of aspirin; Z88.6 Allergy status to analgesic agent; Z95.5 Presence of coronary angioplasty implant and graft